=== PATIENT | male | born 1980 | race Caucasian/White ===

== ENCOUNTER 2018-02-02 13:36 | Emergency (ER) | payer MEDICAID ==
[2018-02-02] MEDS ORDERED: Triple Antibiotic 0.94 gm Pkt TP ONE (13:59)
[2018-02-02] MEDS ORDERED: Triple Antibiotic 0.94 gm Pkt TP STA (14:03)
--- NOTE | 2018-02-02 14:12 | ED Physician Chart ---
ED Chief Complaint/HPI - Patient Information Date Seen:: 02/02/18 Time Seen:: 13:50 Chief Complaint:: LIF Laceration History of Present Illness:: onset x one hour of a LIF Laceration after an accidental cut on a scissors one hour [employer]; pt denies LOC, ALOC, AMS, SIs, H/As, S/T, neck pain, paresthesias, weakness, dizziness, vertigo, C/P, SOB, Abd. Pain, A/N/V/D/C, fever, chills, bleeding, or urinary s/s; pt's last tetanus shot: > 5 years Allergies:: Allergies Allergy/AdvReac Type Severity Reaction Status Date / Time No Known Allergies Allergy Verified 02/02/18 13:49 Vitals:: Vital Signs - 8 hr 02/02/18 13:50 Temp 98.3 F HR 74 RR 16 BP 139/98 O2 Sat % 99 Historian:: Patient Review:: Nurse's Note Reviewed ED Review of Systems - Review of Systems General/Constitutional: No fever, No chills, No weight loss, No weakness, No diaphoresis, No edema, No loss of appetite Skin: No skin lesions, No rash, No bruising Head: No headache, No light-headedness Eyes: No loss of vision, No pain, No diplopia ENT: No earache, No nasal drainage, No sore throat, No tinnitus Neck: No neck pain, No swelling, No thyromegaly, No stiffness, No mass noted Cardio Vascular: No chest pain, No palpitations, No PND, No orthopnea, No edema Pulmonary: No SOB, No cough, No sputum, No wheezing GI: No nausea, No vomiting, No diarrhea, No pain, No melena, No hematochezia, No constipation, No hematemesis G/U: No dysuria, No frequency, No hematuria, No nacturia Musculoskeletal: No bone or joint pain, No back pain, No muscle pain Endocrine: No polyuria, No polydipsia Psychiatric: No prior psych history, No depression, No anxiety, No suicidal ideation, No homicidal ideation, No auditory hallucination, No visual hallucination Hematopoietic: No bruising, No lymphadenopathy Allergic/Immuno: No urticaria, No angioedema Neurological: No syncope, No focal symptoms, No weakness, No paresthesia, No headache, No seizure, No dizziness, No confusion, No vertigo ED Past Medical History - Past Medical History Obtainable: Yes Past Medical History: No significant medical hx Family History: None Social History: Non Smoker, No Alcohol, No Drug Use, Surgical History: None Psychiatricy History: None Medication: Reviewed Family Medical History - Family Member Mother History Unknown: Yes Living Status: Still Living ED Physical Exam - Physical Examination General/Constitutional: Awake, Well-developed, well-nourished, Alert, No distress, GCS 15, Non-toxic appearing, Ambulatory Head: Atraumatic Eyes: Lids, conjuctiva normal, PERRL, EOMI Skin: Nl inspection, No rash, No skin lesions, No ecchymosis, Well hydrated, No lymphadenopathy ENMT: External ears, nose nl, TM canals nl, Nasal exam nl, Lips, teeth, gums nl , Oropharynx nl, Tonsils nl Neck: Nontender, Full ROM w/o pain, No JVD, No nuchal rigidity, No bruit, No mass, No stridor Other Neck comments:: supple; no meningeal signs; no cervical tenderness; no bruits Respiratory: Nl effort/Exclusion, Clear to Auscultation, No Wheeze/Rhonchi/Rales Cardio Vascular: RRR, No murmur, gallop, rubs, NL S1 S2, Carotid/Femoral/Distal pulses equal bilaterally GI: No tenderness/rebounding/guarding, No organomegaly, No hernia, Normal BS's, Nondistended, No mass/bruits, No McBurney tenderness : No CVA tenderness Extremities: No tenderness or effusion, Full ROM, normal strength in all extremities, No edema, Normal digits & nails Other Extremities comments:: LIF: Avulsion-type superficial laceration at DP region; no FBs; no active bleeding; full active ROMs; no joint tenderness; no septic joints; no cellulitis ; no ligament instability; no ligament laxity; good motor, tendon, and sensory functions; good NV functions Neuro/Psych: Alert/oriented, DTR's symmetric, Normal sensory exam, Normal motor strength, Judgement/insight normal, Mood normal, Normal gait, No focal deficits Other Neuro/Psych comments:: no focal signs Misc: Normal back, No paraspinal tenderness ED Assessment Location:: DP of LIF Laceration Type:: Other (Avulsion) Prep/Irrigation:: Thorough Cleansing and Irrigation with betadine and saline Comments: Neosporin Ointment and Tube Gauze Dressing Applied Inspection: No dirt/debris, NO FB Splint Care: Splint applied Post Procedure/Splint Exam: No Active Bleeding, Full Range of Motion, Neuro/ Vascular Exam Comments:: good NV functions ED Septic Shock - . Is Septic Shock (SBP<90, OR Lactate>4 mmol\L) present?: No - <6hrs of presentation: Vital Signs: Vital Signs - 8 hr 02/02/18 13:50 Temp 98.3 F HR 74 RR 16 BP 139/98 O2 Sat % 99 ED Reassessment (Disposition) - Reassessment Reassessment:: pt is asymptomatic upon discharge Reassessment Condition:: Improved - Diagnosis Diagnosis:: Dx: LIF Laceration; LIF Injury; LIF Wound - Aftercare/Follow up Instructions Aftercare/Follow-Up Instructions:: Counseled pt regarding lab results/diagnosis & need follow up, Refer to Discharge Instructions, Counseled pt & family regarding lab results/diagnosis & need follow up Medication Prescribed:: Rx: Keflex 500mg po qid x 10 days; Neosporin Ointment bid and dressing x 14 days ; Wound Care Instructions - Patient Disposition Discharge/Transfer:: Home Condition at Disposition:: Stable, Improved (RTER prn if existing s/s reoccur and/or get worse and/or any other new s/s occur; ACIs given for all above Dx; Refer to Hand Surgeon Specialist/Orthopedist [facility]; F/U with PMD in one day or prn; RTER prn if concerned)
== END 2018-02-02 14:40 | disposition home or self-care (01) ==
LOC: ER 13:36
DX: S61.211A Laceration without foreign body of left index finger without damage to nail, initial encounter (principal); W27.2XXA Contact with scissors, initial encounter; Y93.89 Activity, other specified; Y92.89 Other specified places as the place of occurrence of the external cause; Y99.8 Other external cause status
CPT/HCPCS: Z7502